=== PATIENT | male | born 1950 | race Caucasian/White ===

== ENCOUNTER → 2022-03-31 | Outpatient (CLI) | payer MEDICARE, OTHER ==
[~2022-03-31] MED LIST: DEPO-TESTO200 MG/1 M IM; ECOTRIN81 MG PO; FLOMAX0.4 MG PO; GLUCOVANCE 5-51 EACH PO; IBUPROFEN800 MG PO; IMDUR ER TAB 6060 MG PO; INVOKANA300 MG PO; LOVENOX60 MG/0.6 SC; PERCOCET 5/325 T1 EA PO; PRINIVIL5 MG PO; RANEXA500 MG PO; VITAMIN D350000 UNIT PO; ZOCOR20 MG PO
== END ==
LOC: HEART 5 13:45
DX: R94.31 Abnormal electrocardiogram [ECG] [EKG] (principal); I44.2 Atrioventricular block, complete; I49.5 Sick sinus syndrome; I08.3 Combined rheumatic disorders of mitral, aortic and tricuspid valves
CPT/HCPCS: 93306

== ENCOUNTER → 2022-04-11 | Outpatient (CLI) | payer MEDICARE, OTHER ==
[2022-04-11 10:30] LABS: BUN/CREATININE RATIO 22 (0-10)
[2022-04-11 10:35] LABS: HEMOGLOBIN 19.4 gm/dl (14.0-17.5); RED BLOOD COUNT 6.19 M/UL (4.20-5.50); WHITE BLOOD COUNT 7.7 K/UL (4.5-11.0)
== END ==
LOC: LAB 09:13
PROVIDERS: Internal Medicine Cardiovascular Disease
DX: Z45.010 Encounter for checking and testing of cardiac pacemaker pulse generator [battery] (principal); R94.31 Abnormal electrocardiogram [ECG] [EKG]; I44.2 Atrioventricular block, complete
CPT/HCPCS: 36415; 71046; 80048; 85025

== ENCOUNTER → 2022-04-13 | Outpatient (CLI) | payer MEDICARE, OTHER ==
[~2022-04-13] VITALS: Ht 167.6 cm; Wt 77.1 kg
[~2022-04-13] MED LIST changes: +CLEOCIN HCL300 MG PO; +HYDROCODON-ACE1 EAC4 PO; +LEVOFLOXACIN500 MG PO; +QUETIAPINE FUMA25 MG PO
== END ==
LOC: CATH 11:37
DX: Z45.010 Encounter for checking and testing of cardiac pacemaker pulse generator [battery] (principal); I49.5 Sick sinus syndrome; I44.2 Atrioventricular block, complete; I10 Essential (primary) hypertension; E78.5 Hyperlipidemia, unspecified; I25.10 Atherosclerotic heart disease of native coronary artery without angina pectoris; E11.9 Type 2 diabetes mellitus without complications; G47.33 Obstructive sleep apnea (adult) (pediatric); Z88.0 Allergy status to penicillin; Z79.82 Long term (current) use of aspirin; Z79.84 Long term (current) use of oral hypoglycemic drugs; Z79.899 Other long term (current) drug therapy
CPT/HCPCS: 33213; 99152; 99153; C2621; J2250; J3010; J3370; J7040; J7050